=== PATIENT | female | born 1965 | race Caucasian/White ===

== ENCOUNTER 2021-01-16 14:02 | Emergency (ER) | payer OTHER ==
[~2021-01-16 14:02] MED LIST: ALTACE2.5 MG PO; AMARYL2 MG PO; BREO ELLIPTA 11 EACH PO; CEFDINIR300 MG PO; CIMETIDINE300 MG PO; DESOXIMETASONE15 G1 TOP; LAMICTAL (BLUE)25 MG PO; METFORMIN HCL1000 M1 PO; NEURONTIN300 MG PO; NORCO 5-325 TA1 EACH PO; ONDANSETRON ODT4 MG PO; PERCOCET 5-3251 EACH PO; ULTRAM50 MG PO; VENTOLIN (2.5 MG/3 M PO; VENTOLIN HFA IN18 GM PO; XANAX0.5 MG SL; ZANAFLEX4 MG PO; ZANTAC150 MG PO; ZOLOFT100 MG PO
[2021-01-16 16:02] LABS: BASOPHIL 0.8 % (0-2); EOSINOPHIL 0.2 % (0-5); HCT 45.4 % (37.0-47.0); HGB 15.6 g/dl (12.5-16.0); LYMPHOCYTE 26.4 % (15-48); MCH 29.7 pg (25.0-31.0); MCHC 34.4 g/dL (32.0-36.0); MCV 86.3 fL (78.0-100.0); MONOCYTE 11.2 % (0-12); MPV 9.2 fL (6.0-9.5); NEUTROPHIL 58.3 % (41-80); NRBC 0; PLT 238 K/uL (150-400); RBC 5.26 M/uL (4.20-5.40); RDW 14.3 % (11.5-14.0); WBC 4.8 K/uL (4.0-10.5)
[2021-01-16 16:12] LABS: BILIRUBIN NEGATIVE (NEGATIVE); BLOOD TRACE-INTACT Ery/uL (NEGATIVE); CLARITY CLEAR (CLEAR); COLOR YELLOW (YELLOW); GLUCOSE (U) NORMAL (NORMAL); LEUKOCYTES NEGATIVE Leu/uL (NEGATIVE); NITRITE NEGATIVE (NEGATIVE); PROTEIN NEGATIVE (NEGATIVE); UROBILINOGEN 0.2 mg/dL (0.2-1.0); pH 5.5 (5.0-9.0)
[2021-01-16 16:20] LABS: BACTERIA 1+; URINARY RBC RARE
[2021-01-16 16:28] LABS: ALBUMIN 3.4 g/dL (3.4-5.0); BILIRUBIN - TOTAL 0.4 mg/dL (0.2-1.0); BUN/CREAT RATIO (CALC) 6.8 RATIO; CREATININE 0.74 mg/dL (0.51-0.95); GLOBULIN (CALCULATION) 3.8 g/dL; MAGNESIUM 1.5 mg/dL (1.8-2.4); PHOSPHORUS 4.6 mg/dL (2.6-4.7); POTASSIUM 3.5 mmol/L (3.5-5.1); TOTAL PROTEIN 7.2 g/dL (6.4-8.2)
[2021-01-16 16:30] LABS: LACTIC ACID 1.2 mmol/L (0.4-1.9)
[2021-01-16] MEDS ORDERED: BACTRIM DS TAB1 EACH PO (19:41)
== END 2021-01-16 19:52 | disposition home or self-care (01) ==
LOC: FER 14:02
PROVIDERS: Nurse Practitioner Family
DX: K52.9 Noninfective gastroenteritis and colitis, unspecified (principal); I10 Essential (primary) hypertension; E11.40 Type 2 diabetes mellitus with diabetic neuropathy, unspecified; J44.9 Chronic obstructive pulmonary disease, unspecified; K21.9 Gastro-esophageal reflux disease without esophagitis; F17.210 Nicotine dependence, cigarettes, uncomplicated; Z87.19 Personal history of other diseases of the digestive system; Z90.710 Acquired absence of both cervix and uterus; Z88.8 Allergy status to other drugs, medicaments and biological substances; Z85.43 Personal history of malignant neoplasm of ovary; Z79.84 Long term (current) use of oral hypoglycemic drugs; Z79.899 Other long term (current) drug therapy
CPT/HCPCS: 36415; 80053; 81001; 82150; 83605; 83690; 83735; 84100; 85025; 87045; 87046; 87324; 87449; J7030; Q9967

== ENCOUNTER 2021-04-13 09:24 | Emergency (ER) | payer OTHER ==
[~2021-04-13 09:24] MED LIST changes: +BACTRIM DS TAB1 EACH PO
[2021-04-13 10:30] LABS: BASOPHIL 0.2 % (0-2); EOSINOPHIL 0.2 % (0-5); HCT 42.9 % (37.0-47.0); HGB 14.6 g/dl (12.5-16.0); LYMPHOCYTE 14.1 % (15-48); MCH 29.9 pg (25.0-31.0); MCV 87.9 fL (78.0-100.0); MONOCYTE 7.3 % (0-12); MPV 9.5 fL (6.0-9.5); NEUTROPHIL 77.8 % (41-80); NRBC 0; PLT 174 K/uL (150-400); RBC 4.88 M/uL (4.20-5.40); WBC 4.6 K/uL (4.0-10.5)
[2021-04-13 10:41] LABS: BUN/CREAT RATIO (CALC) 12.9 RATIO; CREATININE 0.7 mg/dL (0.51-0.95); POTASSIUM 3.9 mmol/L (3.5-5.1)
== END 2021-04-13 13:08 | disposition home or self-care (01) ==
LOC: FER 09:24
PROVIDERS: Emergency Medicine
DX: R07.0 Pain in throat (principal); M54.2 Cervicalgia; G93.9 Disorder of brain, unspecified; E11.9 Type 2 diabetes mellitus without complications; I10 Essential (primary) hypertension; J44.9 Chronic obstructive pulmonary disease, unspecified; F17.210 Nicotine dependence, cigarettes, uncomplicated; Z87.19 Personal history of other diseases of the digestive system
CPT/HCPCS: 36415; 70491; 80048; 85025; 87880; Q9967

== ENCOUNTER 2021-08-18 12:35 | Emergency (ER) | payer OTHER ==
[2021-08-18] MEDS ORDERED: NORCO 5-325 TA1 EACH PO (17:37)
[2021-08-18] MEDS ORDERED: VIBRAMYCIN100 MG PO (17:37)
== END 2021-08-18 17:48 | disposition home or self-care (01) ==
LOC: FER 12:35
DX: N75.1 Abscess of Bartholin's gland (principal); F17.210 Nicotine dependence, cigarettes, uncomplicated

== ENCOUNTER → 2021-11-12 | Day surgery (SDC) | payer OTHER ==
[~2021-11-12] VITALS: Ht 170.2 cm; Wt 77.1 kg
[~2021-11-12] MED LIST changes: +NEXIUM 40MG CAP40 MG PO; +SYMBICORT 80-10.2 GM INH; +VIBRAMYCIN100 MG PO
== END | disposition home or self-care (01) ==
LOC: FAS 07:01
DX: K29.50 Unspecified chronic gastritis without bleeding (principal); K21.9 Gastro-esophageal reflux disease without esophagitis; J44.9 Chronic obstructive pulmonary disease, unspecified; E78.00 Pure hypercholesterolemia, unspecified; I10 Essential (primary) hypertension; Z88.8 Allergy status to other drugs, medicaments and biological substances; E11.51 Type 2 diabetes mellitus with diabetic peripheral angiopathy without gangrene; F17.210 Nicotine dependence, cigarettes, uncomplicated; E66.9 Obesity, unspecified; Z68.26 Body mass index [BMI] 26.0-26.9, adult; E78.5 Hyperlipidemia, unspecified; Z88.6 Allergy status to analgesic agent; Z88.2 Allergy status to sulfonamides; Z88.1 Allergy status to other antibiotic agents
CPT/HCPCS: J2250; J2704; J7120